=== PATIENT | female | born 1955 | race Caucasian/White ===

== ENCOUNTER 2018-04-17 09:17 | Emergency (ER) | payer OTHER ==
[~2018-04-17] VITALS: Ht 152.4 cm; Wt 63.0 kg
[~2018-04-17 09:17] MED LIST: ALENDRONATE70 MG PO; AUGMENTIN875TAB PO; FLEXERIL5 M1 PO; HYDROCO/APAP1 TA9 PO; LORTAB 5/3255 MG PO; NAPROSYN500 MG PO
[2018-04-17] MEDS ORDERED: NAPROXEN DR500 MG PO (09:39)
[2018-04-17 10:05] VITALS: BP 118/76
[2018-04-17] MEDS ORDERED: TRAMADOL HYDROC50 MG PO (10:15)
== END 2018-04-17 10:25 | disposition home or self-care (01) | DRG 563 ==
LOC: ED 09:17
DX: S92.424A Nondisplaced fracture of distal phalanx of right great toe, initial encounter for closed fracture (principal); M19.90 Unspecified osteoarthritis, unspecified site; W18.30XA Fall on same level, unspecified, initial encounter; Y92.009 Unspecified place in unspecified non-institutional (private) residence as the place of occurrence of the external cause

== ENCOUNTER 2018-06-10 11:37 | Emergency (ER) | payer OTHER ==
[~2018-06-10] VITALS: Ht 152.4 cm; Wt 63.6 kg
[~2018-06-10 11:37] MED LIST changes: +NAPROXEN DR500 MG PO; +TRAMADOL HYDROC50 MG PO
[2018-06-10 11:50] VITALS: BP 153/78
[2018-06-10] MEDS ORDERED: HYDROCO/APAP1 TA9 PO (13:13)
[2018-06-10] MEDS ORDERED: VOLTAREN1%GEL TOP (13:13)
== END 2018-06-10 13:20 | disposition home or self-care (01) | DRG 206 ==
LOC: ED 11:37
DX: S22.32XA Fracture of one rib, left side, initial encounter for closed fracture (principal); M19.90 Unspecified osteoarthritis, unspecified site; W01.190A Fall on same level from slipping, tripping and stumbling with subsequent striking against furniture, initial encounter; Y93.89 Activity, other specified; Y92.009 Unspecified place in unspecified non-institutional (private) residence as the place of occurrence of the external cause

== ENCOUNTER 2021-10-10 12:42 | Emergency (ER) | payer OTHER ==
[~2021-10-10] VITALS: Ht 152.4 cm; Wt 65.0 kg
[~2021-10-10 12:42] MED LIST changes: +VOLTAREN1%GEL TOP
[2021-10-10 14:07] LABS: HEMATOCRIT 39.7 % (37.0-47.0); HEMOGLOBIN 12.6 g/dl (12.0-16.0); IMMATURE GRANULOCYTES 0.1 % (0.0-5.0); MEAN CELL VOLUME 98.8 fL CALC (80.0-100.0); MEAN CORPUSCULAR HGB 31.3 pG CALC (26.0-32.0); MEAN CORPUSCULAR HGB CONC 31.7 g/dL CAL (32.0-36.0); NEUT# 5.94 thou/uL (2.00-7.15); RED BLOOD COUNT 4.02 mill/uL (4.20-5.60); RED CELL DISTRI WIDTH 12.7 % (11.5-15.5)
[2021-10-10 14:28] LABS: ALKALINE PHOSPHATASE 149 u/l (38-126); ANION GAP 12 (6-22 (CALC)); BILIRUBIN, TOTAL 0.5 mg/dL (0.0-1.4); BUN 11 mg/dL (8-23); BUN/CREATININE RATIO 23 (12-20 (CALC)); CARBON DIOXIDE 24 mmol/l (22-30); CHLORIDE 106 mmol/l (95-108); CREATININE 0.5 mg/dL (0.5-1.0); GFR > 60 ML/MIN (>=60 (CALC)); GFR FOR AFR.AMER. > 60 ML/MIN (>=60 (CALC)); POTASSIUM 3.8 mmol/l (3.5-5.1); SGOT/AST 28 u/l (9-36); SODIUM 138 mmol/l (137-146); TOTAL PROTEIN 7.4 g/dL (6.3-8.2)
[2021-10-10 14:30] LABS: ACT PARTIAL THROMBO TIME 21.2 SECONDS (20.0-32.5)
[2021-10-10 15:30] VITALS: BP 150/72
== END 2021-10-10 15:30 | disposition short-term general hospital (02) | DRG 534 ==
LOC: ED 12:42
DX: S72.402A Unspecified fracture of lower end of left femur, initial encounter for closed fracture (principal); W01.0XXA Fall on same level from slipping, tripping and stumbling without subsequent striking against object, initial encounter; Y92.481 Parking lot as the place of occurrence of the external cause; Y99.9 Unspecified external cause status; Z96.653 Presence of artificial knee joint, bilateral